=== PATIENT | female | born 1970 | race Caucasian/White ===

== ENCOUNTER 2020-09-25 04:34 | Emergency (ER) | payer BC ==
[~2020-09-25] VITALS: Ht 162.6 cm; Wt 92.4 kg
[2020-09-25] MEDS ORDERED: PANT40TA29 PO (04:42)
[2020-09-25] MEDS ORDERED: WELLTAB40 PO (04:42)
[2020-09-25 05:46] LABS: BASO # 0.1 10^3/uL (0.0-0.2); BASO % 0.8 % (0.0-1.0); EOS # 0.1 10^3/uL (0.0-0.5); EOS % 1.2 % (0.0-3.0); HEMATOCRIT 35.6 % (36.0-47.0); HEMOGLOBIN 12.1 g/dl (12.0-15.5); LYMPH # 2.4 10^3/uL (1.5-5.0); LYMPH % 25.9 % (24.0-44.0); MEAN CORPUSCULAR HEMOGLOBIN 31.9 pg (27.0-33.0); MEAN CORPUSCULAR VOLUME 93.9 fl (80.0-96.0); MONO # 0.6 10^3/uL (0.0-0.8); NEUTROPHILS # 5.9 10^3/uL (1.5-8.5); NEUTROPHILS % 64.8 % (36.0-66.0); PLATELET COUNT, AUTOMATED 292 10^3/uL (150-450); RED BLOOD COUNT 3.79 10^6/uL (4.00-5.40); WHITE BLOOD COUNT 9.1 10^3/uL (4.0-10.0)
[2020-09-25 06:01] LABS: ALBUMIN 3.8 GM/DL (3.2-5.2); ALT/SGPT 22 U/L (12-78); BILIRUBIN,DIRECT < 0.1 MG/DL (0.0-0.2); BILIRUBIN,TOTAL 0.2 MG/DL (0.2-1.0); BLOOD UREA NITROGEN 19 MG/DL (7-18); CARBON DIOXIDE LEVEL 28 MEQ/L (21-32); CHLORIDE LEVEL 106 MEQ/L (98-107); CK-MB VALUE MASS 1.4 NG/ML (<3.6); CPK CREATINE PHOSPHOKINASE 81 U/L (26-192); CREATININE FOR GFR 0.76 MG/DL (0.55-1.30); GLOMERULAR FILTRATION RATE > 60.0 (>51); GLUCOSE, FASTING 100 MG/DL (70-100); LIPASE 104 U/L (73-393); MB/CK RELATIVE INDEX 1.73 (< OR =4); NT-PRO BNP 13 PG/ML (<125); POTASSIUM SERUM 4.2 MEQ/L (3.5-5.1); SODIUM LEVEL 138 MEQ/L (136-145); TROPONIN I < 0.02 NG/ML (< 0.10)
[2020-09-25] MEDS ORDERED: IPRATROPIUM 0.5MG/ALBUTEROL 2.5MG INH SOL UD 3ML (DUONEB) NEB ONE (06:45)
[2020-09-25] MEDS ORDERED: methylPREDNISolone 125MG 2ML VIAL IV ONE (06:45)
[2020-09-25] MEDS ORDERED: COMBAER6 INH (07:21)
[2020-09-25] MEDS ORDERED: PRED20TA PO (07:21)
[2020-09-25 07:51] LABS: INR 0.93; PROTHROMBIN TIME 12.7 SECONDS (12.5-14.3)
[2020-09-25 07:52] LABS: PARTIAL THROMBOPLASTIN TIME 25.4 SECONDS (24.2-38.5)
[2020-09-25 07:58] LABS: D-DIMER QUANT < 270 ng/ml (<500)
--- NOTE | 2020-09-25 08:05 | ECGEPIP ---
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
[2020-09-25 08:16] LABS: CK-MB VALUE MASS 1.3 NG/ML (<3.6); CPK CREATINE PHOSPHOKINASE 78 U/L (26-192); MB/CK RELATIVE INDEX 1.67 (< OR =4); TROPONIN I < 0.02 NG/ML (< 0.10)
--- NOTE | 2020-09-25 08:17 | REP ---
INDICATION: shortness of breath. COMPARISON: None. FINDINGS: The superior mediastinal structures are midline. The cardiac silhouette is unremarkable in size, shape, and position. The diaphragmatic surfaces of the lungs are regular, and the costophrenic angles are clear. The pulmonary sorto are clear. The imaged osseous structures are intact. IMPRESSION: There is no acute cardiopulmonary disease. <Electronically signed by Ari Storey > 09/25/20 0811
[2020-09-25] MEDS ORDERED: ISOVUE-370 76% 100ML VIAL As Ordered ONE (08:20)
[2020-09-25] MEDS ORDERED: COMBIVENT RESPIMAT 100-20MCG INHALER 4GM INH ONE (09:00)
--- NOTE | 2020-09-25 09:30 | REP ---
INDICATION: shortness of breath COMPARISON: None. TECHNIQUE: CT angiography of the chest after the intravenous administration of 75 cc Isovue 370 attention pulmonary arteries. FINDINGS: There is excellent visualization of the pulmonary arterial vasculature. There are no focal filling defects present that would be considered consistent with acute pulmonary emboli. Limited evaluation of the thoracic aorta shows no abnormality. There is no mediastinal or hilar adenopathy. There are no pleural or pericardial effusions. The imaged osseous structures are within normal limits. The imaged upper abdomen is within normal limits. Evaluation of the lung sorto shows hypoexpansion which crowds the vascularity. No abnormal nodules, masses, or opacities are present. IMPRESSION: CT findings are within normal limits. <Electronically signed by Ari Storey > 09/25/20 [id number]
[2020-09-25 10:01] VITALS: BP 121/76
== END 2020-09-25 10:30 | disposition home or self-care (01) ==
LOC: M ED 04:34
DX: J68.3 Other acute and subacute respiratory conditions due to chemicals, gases, fumes and vapors (principal); R00.1 Bradycardia, unspecified; E11.9 Type 2 diabetes mellitus without complications; Z88.0 Allergy status to penicillin
CPT/HCPCS: 71046; 71275; 80048; 80076; 82550; 82553; 83690; 83880; 84484; 85025; 85379; 85610; 85730; 87798; 93005; 93041; 94640; 94760; 96374; 99285; J2930; Q9967